=== PATIENT | female | born 1955 | race Caucasian/White ===

== ENCOUNTER 2021-01-07 19:46 | Emergency (ER) | payer OTHER ==
[~2021-01-07] VITALS: Ht 162.6 cm; Wt 113.4 kg
[2021-01-07] MEDS ORDERED: DICLOFENAC35 MG PO (20:05)
[2021-01-07] MEDS ORDERED: LASIX 40 MG TAB40 MG PO (20:06)
[2021-01-07] MEDS ORDERED: OMEPRAZOLE10 MG (20:06)
[2021-01-07] MEDS ORDERED: KAPSPARGO SPRIN25 MG (20:06)
[2021-01-07] MEDS ORDERED: NORCO5 PO (21:30)
[2021-01-07] MEDS ORDERED: ZOFRAN ODT4 MG PO (21:30)
[2021-01-07 21:35] VITALS: BP 138/79
== END 2021-01-07 21:35 | disposition home or self-care (01) ==
LOC: M.ERS 19:46
DX: M77.8 Other enthesopathies, not elsewhere classified (principal); M19.90 Unspecified osteoarthritis, unspecified site; I10 Essential (primary) hypertension; Z96.652 Presence of left artificial knee joint; Z88.0 Allergy status to penicillin; Z88.8 Allergy status to other drugs, medicaments and biological substances; Z88.5 Allergy status to narcotic agent